=== PATIENT | male | born 1995 | race Caucasian/White ===

== ENCOUNTER 2018-09-29 06:13 | Emergency (ER) | payer OTHER ==
[~2018-09-29] VITALS: Ht 180.3 cm; Wt 120.2 kg
[2018-09-29 06:17] VITALS: BP 129/85
--- NOTE | 2018-09-29 06:23 | NUR ---
PT TAKEN TO BED 2
--- NOTE | 2018-09-29 06:33 | NUR ---
X-Ray at bedside.
--- NOTE | 2018-09-29 06:33 | NUR ---
PT TO ED WITH C/O LACERATION TO LEFT 4TH AND 5TH FINGER. BLEEDING CONTROLLED. +ROM. +CMS. PT PLACED INTO BED, PENDING [facility]. LAST TDAP-APPROX 6 YEARS AGO. PMH--DENIES RX--DENIES
[2018-09-29 06:52] VITALS: BP 129/85
== END 2018-09-29 06:54 | disposition home or self-care (01) ==
LOC: MED 06:13
DX: S61.215A Laceration without foreign body of left ring finger without damage to nail, initial encounter (principal); S61.217A Laceration without foreign body of left little finger without damage to nail, initial encounter; W25.XXXA Contact with sharp glass, initial encounter; Y93.G1 Activity, food preparation and clean up; Y92.89 Other specified places as the place of occurrence of the external cause; Y99.8 Other external cause status
CPT/HCPCS: 12001; 73140; 99283; Q0092